=== PATIENT | female | born 1995 | race Two or more races ===

== ENCOUNTER 2022-03-01 19:59 | Emergency (ER) | payer SELFPAY ==
[~2022-03-01] VITALS: Ht 152.4 cm; Wt 49.0 kg
--- NOTE | 2022-03-01 20:19 | NUR ---
BIBSELF C/O LOWER ABD PAIN X3 DAYS NON RADIATING. PT A/OX4. TOLERATING R/A WELL WITH NO SOB.
[2022-03-01 20:20] VITALS: BP 122/68
--- NOTE | 2022-03-01 20:28 | NUR ---
URINE COLLECTED AND SENT TO LAB
--- NOTE | 2022-03-01 20:39 | NUR ---
PT SEEN BY DR. CAT
--- NOTE | 2022-03-01 20:55 | NUR ---
US TECH AT PT'S BEDSIDE
[2022-03-01 21:24] LABS: BILIRUBIN,URINE NEGATIVE (NEGATIVE); COLOR,URINE YELLOW (YELLOW); LEUKOCYTE ESTERASE ,URINE NEGATIVE (NEGATIVE); NITRITE, URINE NEGATIVE (NEGATIVE); PH,URINE 6.5 (5.0-8.0); PROTEIN,URINE NEGATIVE (NEGATIVE); UGLUCOSE NEGATIVE (NEGATIVE); UROBILINOGEN,URINE 0.2 EU/dL (0.2)
[2022-03-01 21:33] LABS: BACTERIA,URINE None seen /HPF (None Seen); RBC,URINE 0-2 /HPF (0-2); SQUAMOUS EPITHELIAL CELL,UR 0-2 /HPF (None Seen); WBC,URINE 0-2 /HPF (0-3)
--- NOTE | 2022-03-01 21:46 | NUR ---
Patient discharged to home in stable condition. Written and verbal after care instructions given. Patient verbalizes understanding of instruction. PT ambulatory with a steady gait
== END 2022-03-01 21:51 | disposition home or self-care (01) ==
LOC: ER 20:03
DX: R10.2 Pelvic and perineal pain (principal); Z60.2 Problems related to living alone
CPT/HCPCS: 76856-TC; 81001; 84703-TC